=== PATIENT | female | born 1980 | race Caucasian/White ===

== ENCOUNTER 2020-10-20 11:01 | Day surgery (SDC) | payer BC ==
[2020-10-20] MEDS ORDERED: BUPIVACAINE 0.5% VIAL IJ ONE (11:02)
[2020-10-20] MEDS ORDERED: Xylocaine 1% Vial 30 ML PF IJ ONE (11:02)
[2020-10-20] MEDS ORDERED: Depo-Medrol 40 MG/ML IM ONE (11:02)
[2020-10-20] MEDS ORDERED: DIPRIVAN 200 MG/20 ML IV ONE (12:08)
--- NOTE | 2020-10-20 14:12 | XRAY ---
Indication: Right knee injection. Intraoperative fluoroscopy provided for 6 seconds. Single digital spot image submitted for interpretation demonstrates needle tip projecting over the right femur intercondylar notch. Small amount of contrast injected for needle tip placement. Correlate with intraoperative findings/report.
--- NOTE | 2020-10-20 14:15 | XRAY ---
6 seconds of fluoroscopy was used in surgery for a right intra-articular knee injection.
[2020-10-20] MEDS ORDERED: Lactated Ringers 1,000 ML IV ONE (15:28)
== END 2020-10-20 12:33 | disposition home or self-care (01) ==
LOC: SDC-PAIN 11:01
PROVIDERS: ATTEND Psychiatry & Neurology Pain Medicine
DX: M17.11 Unilateral primary osteoarthritis, right knee (principal); K21.9 Gastro-esophageal reflux disease without esophagitis; F41.8 Other specified anxiety disorders; Z79.899 Other long term (current) drug therapy
CPT/HCPCS: 20610; 73560; 77002; J1030; J2001; J2704; Q9966

== ENCOUNTER 2021-01-19 13:07 | Day surgery (SDC) | payer BC ==
[2021-01-19] MEDS ORDERED: LIDOCAINE HCL 2% 100 MG/5 ML IJ ONE (13:08)
[2021-01-19] MEDS ORDERED: Lactated Ringers 1,000 ML IV ONE (13:50)
[2021-01-19] MEDS ORDERED: DIPRIVAN 200 MG/20 ML IV ONE (14:21)
--- NOTE | 2021-01-19 17:13 | XRAY ---
18 seconds of fluoroscopy was used in a bilateral L4-S1 MBB.
--- NOTE | 2021-01-21 09:17 | XRAY ---
Indication: Bilateral L4-S1 MBB. Intraoperative fluoroscopy was provided for 18 seconds. A single digital spot image submitted for interpretation demonstrates posterior spinal needle tips projected over the expected course of the left and right L4-S1 nerve roots. Correlate with intraoperative findings/report.
== END 2021-01-19 14:47 | disposition home or self-care (01) ==
LOC: SDC-PAIN 13:07
PROVIDERS: ATTEND Psychiatry & Neurology Pain Medicine
DX: M47.816 Spondylosis without myelopathy or radiculopathy, lumbar region (principal); Z79.899 Other long term (current) drug therapy
CPT/HCPCS: 64493; 64494; 72020; 77002; J2704

== ENCOUNTER 2023-04-22 12:54 | Emergency (ER) | payer BC ==
[2023-04-22 13:08] VITALS: BP 174/87; PULSE 113; RESP 20; TEMP 99.4; O2SAT 98
[2023-04-22] MEDS ORDERED: NORCO 5/325 MG PO ONE (13:16)
[2023-04-22] MEDS ORDERED: NORCO 5/325 MG ONE (13:23)
--- NOTE | 2023-04-22 13:23 | ERPHSYRPT ---
- History of Present Illness Time Seen by Provider: 04/22/23 13:08 Source: patient Exam Limitations: no limitations Patient Subjective Stated Complaint: Dental pain Triage Nursing Assessment: Patient ambulated back to ED and transferred self to bed. Patient A+O X3. Patient's skin pink,warm and dry. Patient complains of dental pain to left upper mouth. Patient states she was eating popcorn last night when the tooth broke. Patient complains of pain 6/10. Tooth to left side noted to be broken and decayed with red and swollen gums. Physician History: 42 years old female with history of multiple bad intubations presented in the ER with chief complaint of left lateral incisor pain since yesterday after she was having popcorn and a piece of her tooth broke. Patient reports sharp shooting pain moderate to severe intensity, aggravated with touching with no significant swelling around. No discharge. No fever or chills reported. Patient has lateral side of left lateral incisor broken. Tender to touch. Minimal tenderness of gingiva. No swelling of gingiva. She is given symptomatic treatment with [place] for pain. I believe patient has nerve exposed and nerve pain. We will continue with pain medications to go home and outpatient dental follow-up recommended. Do not think she needs antibiotics. Allergies/Adverse Reactions: tramadol [From Ultram] Allergy (Verified 04/22/23 13:02) cephalexin [From Keflex] Adverse Reaction (Verified 04/22/23 13:02) lorazepam [From Ativan] Adverse Reaction (Verified 04/22/23 13:02) meloxicam [From Mobic] Adverse Reaction (Verified 04/22/23 13:02) Penicillins Adverse Reaction (Verified 04/22/23 13:02) Home Medications: Venlafaxine HCl [Venlafaxine HCl ER] 150 mg PO DAILY 02/24/23 [History] Hx Tetanus, Diphtheria Vaccination/Date Given: Yes Hx Influenza Vaccination/Date Given: No Hx Pneumococcal Vaccination/Date Given: No Immunizations Up to Date: Yes Travel Risk - International Travel Have you traveled outside of the country in past 3 weeks: No - Coronavirus Screening Are you exhibiting any of the following symptoms?: No Close contact with a COVID-19 positive Pt in past 14-21 Days: No - Vaccine Status Have you recieved a Covid-19 vaccination: No - Review of Systems Constitutional: No Symptoms Ears, Nose, & Throat: Loose Teeth Respiratory: No Symptoms Cardiac: No Symptoms Abdominal/Gastrointestinal: No Symptoms Neurological: No Symptoms Psychological: No Symptoms - Past Medical History Neurological History: No Pertinent History ENT History: No Pertinent History Cardiac History: No Pertinent History Respiratory History: No Pertinent History Endocrine Medical History: No Pertinent History Musculoskeletal History: No Pertinent History GI Medical History: No Pertinent History History: No Pertinent History Psycho-Social History: Anxiety, Depression Female Reproductive Disorders: No Pertinent History - Past Surgical History Neuro Surgical History: No Pertinent History Cardiac: No Pertinent History Respiratory: No Pertinent History Gastrointestinal: Cholecystectomy Musculoskeletal: Orthopedic Surgery Female Surgical History: Hysterectomy Other Surgical History: right knee surgery x3, gastric bypass, back surgery x2 - Social History Smoking Status: Current every day smoker Exposure to second hand smoke: Yes Drug Use: none Patient Lives Alone: No - Female History Hx Last Menstrual Period: hysterectomy Hx Now: No - Nursing Vital Signs Nursing Vital Signs: Initial Vital Signs Temperature 99.4 F 04/22/23 13:03 Pulse Rate 113 H 04/22/23 13:03 Respiratory Rate 20 04/22/23 13:03 Blood Pressure 174/87 04/22/23 13:03 O2 Sat by Pulse Oximetry 98 04/22/23 13:03 Pain Scale Pain Intensity 6 - Physical Exam General Appearance: no apparent distress, alert Eye Exam: bilateral eye: PERRL Ear Exam: bilateral ear: auricle normal Nasal Exam: normal inspection Throat Exam: normal, pharynx normal, dental tenderness (Left lateral incisor) Neck Exam: normal inspection, supple, full range of motion Cardiovascular/Respiratory Exam: normal breath sounds, tachycardia Neurologic Exam: alert, oriented x 3, cooperative, town [place] II-XII nml as tested Skin Exam: normal color SpO2 Interpretation: normal SpO2: 98 O2 Delivery: Room Air - Progress Progress Note: 04/22/23 13:22 42 years old female with history of multiple bad intubations presented in the ER with chief complaint of left lateral incisor pain since yesterday after she was having popcorn and a piece of her tooth broke. Patient reports sharp shooting pain moderate to severe intensity, aggravated with touching with no significant swelling around. No discharge. No fever or chills reported. Patient has lateral side of left lateral incisor broken. Tender to touch. Minimal tenderness of gingiva. No swelling of gingiva. She is given symptomatic treatment with [place] for pain. I believe patient has nerve exposed and nerve pain. We will continue with pain medications to go home and outpatient dental follow-up recommended. Do not think she needs antibiotics. Counseled pt/family regarding: diagnosis, need for follow-up Medical Desision Making - Risk of complications The pt has a mod risk of morbidity or mortality based on: Need for prescription drug management - Departure Departure Disposition: Home Clinical Impression: Pain, dental Condition: Stable Critical Care Time: No Referrals: PEYMAN AVILA NP [Primary Care Provider] - Follow up with PCP 1 day HAZEL LUNA DDS [NON-STAFF PHY W/O PRIVILEGES] - Follow up/PCP as directed (Call tomorrow morning for appointment for reevaluation) Additional Instructions: Take pain medications as needed. Follow-up with primary care/primary dentist for reevaluation. Return to ER for worsening. Prescriptions: Hydrocodone/Acetaminophen [Hydrocodone-Acetamin 7.5-325] 1 each PO Q6HPRN PRN 3 Days #12 tablet MDD 4 PRN Reason: Pain
[2023-04-22] MEDS ORDERED: XYLOCAINE VISCOUS 2% 15 ML CUP ONE (13:33)
[2023-04-22] MEDS ORDERED: MAALOX ES 30 ML UNIT DOSE ONE (13:33)
[2023-04-22] MEDS ORDERED: CETACAINE SPRAY TP ONE (13:34)
[2023-04-22] MEDS ORDERED: XYLOCAINE VISCOUS 2% 15 ML CUP PO ONE (13:34)
[2023-04-22] MEDS ORDERED: MAALOX ES 30 ML UNIT DOSE PO ONE (13:34)
== END 2023-04-22 13:44 | disposition home or self-care (01) ==
LOC: ED 12:54
DX: K08.89 Other specified disorders of teeth and supporting structures (principal); Z79.891 Long term (current) use of opiate analgesic; Z79.899 Other long term (current) drug therapy; Z28.310 Unvaccinated for COVID-19; Z72.0 Tobacco use
CPT/HCPCS: 99282; A9270-GY

== ENCOUNTER 2023-05-12 12:00 | Emergency (ER) | payer BC ==
[2023-05-12 12:23] VITALS: TEMP 98.8
[2023-05-12] MEDS ORDERED: TORAdol 30 mg Injection IM ONE (12:33)
[2023-05-12] MEDS ORDERED: Rocephin 1000 MG INJ IM ONE (12:33)
--- NOTE | 2023-05-12 12:38 | ERPHSYRPT ---
- History of Present Illness Time Seen by Provider: 05/12/23 12:35 Source: patient Exam Limitations: no limitations Patient Subjective Stated Complaint: broken tooth with an abcess above it Triage Nursing Assessment: Pt brought self to the ER, hypertensive, rates pain as 8/10, holding left side of face, broken tooth on the upper left side with a puss pocket, doesn't have dental insurance but can get in to [employer] on Jun 14, denies any other issues Physician History: broken tooth with an abcess above it holding left side of face, broken tooth on the upper left side with a puss pocket, doesn't have dental insurance but can get in to [employer] [facility] on Jun 14, denies any other issues Timing/Duration: week(s) Severity: moderate Associated Symptoms: denies symptoms Allergies/Adverse Reactions: tramadol [From Ultram] Allergy (Verified 05/12/23 12:23) cephalexin [From Keflex] Adverse Reaction (Verified 05/12/23 12:23) lorazepam [From Ativan] Adverse Reaction (Verified 05/12/23 12:23) meloxicam [From Mobic] Adverse Reaction (Verified 05/12/23 12:23) Penicillins Adverse Reaction (Verified 05/12/23 12:23) Home Medications: Venlafaxine HCl [Venlafaxine HCl ER] 150 mg PO DAILY 02/24/23 [History] Buspirone HCl 15 mg PO TID 05/12/23 [History] Hx Tetanus, Diphtheria Vaccination/Date Given: Yes Hx Influenza Vaccination/Date Given: No Hx Pneumococcal Vaccination/Date Given: No Travel Risk - International Travel Have you traveled outside of the country in past 3 weeks: No - Coronavirus Screening Are you exhibiting any of the following symptoms?: No Close contact with a COVID-19 positive Pt in past 14-21 Days: No - Vaccine Status Have you recieved a Covid-19 vaccination: No - Review of Systems Constitutional: No Symptoms Eyes: No Symptoms Ears, Nose, & Throat: Loose Teeth Respiratory: No Symptoms Cardiac: No Symptoms Abdominal/Gastrointestinal: No Symptoms Genitourinary Symptoms: No Symptoms Musculoskeletal: No Symptoms - Past Medical History Pertinent Past Medical History: Yes Neurological History: No Pertinent History ENT History: No Pertinent History Cardiac History: No Pertinent History Respiratory History: No Pertinent History Endocrine Medical History: No Pertinent History Musculoskeletal History: No Pertinent History GI Medical History: No Pertinent History History: No Pertinent History Psycho-Social History: Anxiety, Depression Female Reproductive Disorders: No Pertinent History - Past Surgical History Past Surgical History: Yes Neuro Surgical History: No Pertinent History Cardiac: No Pertinent History Respiratory: No Pertinent History Gastrointestinal: Cholecystectomy Musculoskeletal: Orthopedic Surgery Female Surgical History: Hysterectomy Other Surgical History: right knee surgery x3, gastric bypass, back surgery x2 - Social History Smoking Status: Current every day smoker How long have you smoked: vape Exposure to second hand smoke: No Drug Use: none Patient Lives Alone: No - Female History Hx Now: No (hysterectomy) - Nursing Vital Signs Nursing Vital Signs: Initial Vital Signs Temperature 98.8 F 05/12/23 12:18 Pulse Rate 102 H 05/12/23 12:18 Blood Pressure 146/95 05/12/23 12:18 O2 Sat by Pulse Oximetry 100 05/12/23 12:18 Pain Scale Pain Intensity 8 - Physical Exam General Appearance: no apparent distress Eye Exam: PERRL/EOMI Ears, Nose, Throat Exam: normal ENT inspection, other (dental abscess left upper incissior) Neck Exam: normal inspection SpO2: 100 - Course Nursing assessment & vital signs reviewed: Yes Ordered Tests: Medication Summary Generic Name Dose Route Start Last Admin Trade Name Freq PRN Reason Stop Dose Admin Ceftriaxone Sodium 1,000 mg 05/12/23 12:33 Ceftriaxone Sodium 1000 Mg Inj Vial IM 05/12/23 12:34 STAT ONE Ketorolac Tromethamine 60 mg 05/12/23 12:33 Ketorolac Tromethamine 30 Mg/Ml Inj IM 05/12/23 12:34 STAT ONE - Progress Progress: improved, pain not gone completely Counseled pt/family regarding: diagnosis, need for follow-up (with Dentist) Medical Desision Making - Diagnostic Testing Diagnostic test were ordered, analyzed, and reviewed by me: No - Risk of complications Minimal Risk: Minimal risk of morbidity - Departure Departure Disposition: Home Clinical Impression: Dental abscess Condition: Stable Critical Care Time: No Referrals: PEYMAN AVILA HAIR TINTER [Primary Care Provider] - Follow up/PCP as directed Instructions: Tooth Abscess (DC), Dental Pain (DC), Tooth Decay, Adult (DC) Additional Instructions: Discharge/Care Plan RADHA DIAL was seen on 05/12/23 in the Emergency Room. The patient was counseled regarding Diagnosis,Lab results, Imaging studies, need for follow up and when to return to the Emergency Room. Prescriptions given: Discharge Note I have spoken with the patient and/or caregivers. I have explained the patient's condition, diagnosis and treatment plan based on the information available to me at this time. I have answered the patient's and/or caregiver's questions and addressed any concerns. The patient and/or caregivers have as good understanding of the patient's diagnosis, condition and treatment plan as can be expected at this point. The vital signs have been stable. The patient's condition is stable and appropriate for discharge from the emergency department. The patient will pursue further outpatient evaluation with the primary care physician or other designated or consulting physician as outlined in the discharge instructions. The patient and/or caregivers are agreeable to this plan of care and follow-up instructions have been explained in detail. The patient and/or caregivers have received these instruction. The patient/and or caregivers are aware that any significant change in condition or worsening of symptoms should prompt an immediate return to this or the closest emergency department or call 911. RADHA DIAL was seen on 05/12/23 n the Emergency Room. At that time you were treated for an emergent condition, during your visit Laboratory, Radiology and/or other procedures may have been ordered. It is very important that you follow-up with your Primary Care Physician PEYMAN AVILA NP within the next 24-48 hours to review your Emergency Room visit and the final results of testing that was ordered. Some test results such as Urine Cultures, Blood Cultures, and other cultures if ordered will not be finalized for 24-48 hours. If you do not have a Primary Care Provider please call the medical records department at [phone] to obtain a copy of your results or you may sign into our patient portal to obtain these results by visiting us @ [email or web address] and completing the following steps: 1. Click on the Patient Portal link 2. Click the Patient Self Enrollment Link to complete the enrollment form and entering your 3. Once the enrollment form is completed you will receive an email with a temporary ID and password at the email address you provided. 4. Next choose a user name and password. Your user name must be at least 4 characters long and your password must be at least 4 characters long. 5. Choose a security question from the list and provide your answer to the question. If you already have signed into the Health Portal you may access your Health Care Information 25/12 by the following steps: 1. Login to our website @ [email or web address] 2. Enter your original user name and password. FAQS The [facility] Health Portal is an online tool that contains your Lab Results, Radiology Reports, Visit History, Discharge Instructions and Health Summary Lab and Radiology Results will not be available for 72 hours on the portal. The Portal is a secure site, passwords are encryted and URLs are re-written so they cannot be copied and pasted. You and authorized family members are the only ones who can access your Portal. Also there is a timeout feature that protects your information if you leave the Portal page open. If you have technical difficulty please use the Contact Us link on the page this will allow you to submit any questions you have regarding the Portal or you may contact the Medical Record Department at [phone]. Prescriptions: Naproxen 375 mg [Naprosyn 375 mg] 375 mg PO Q8H #30 tablet Doxycycline Hyclate 100 mg [Vibramycin 100 MG] 100 mg PO BID #15 tab
[2023-05-12] MEDS ORDERED: XYLOCAINE 1% HCL 20 ML MDV ONE (12:45)
[2023-05-12] MEDS ORDERED: Rocephin 1000 MG INJ ONE (12:45)
[2023-05-12] MEDS ORDERED: TORAdol 30 mg Injection ONE (12:45)
[2023-05-12 13:24] VITALS: BP 129/82; PULSE 80; RESP 18; O2SAT 96
== END 2023-05-12 13:24 | disposition home or self-care (01) ==
LOC: ED 12:00
DX: K04.7 Periapical abscess without sinus (principal); Z79.899 Other long term (current) drug therapy; Z28.310 Unvaccinated for COVID-19; Z72.0 Tobacco use
CPT/HCPCS: 96372; 99282; J0696; J1885